=== PATIENT | female | born 1945 | race Caucasian/White ===

== ENCOUNTER → 2016-10-31 | Outpatient (REF) | payer MEDICARE ==
[~2016-10-31] MED LIST: ASPI325T PO; ATEN50TA2 PO; CINN500C9 PO; COUM2.5T11 PO; CRANPOW2 PO; CYCL10TA PO; FISH5CAP PO; FLAX1000 PO; FLAXOIL3 PO; GARL1CAP PO; LISI10TA4 PO; MAGN250T9 PO; MILKSUS PO; MIRA3350 PO; NIAC500T5 PO; PERC5TAB6 PO; PRIL20TA2 PO; PROBCAP4 PO; SENO8.6T10 PO; SIMV40TA2 PO; TYLE325T5 PO; TYLE650T25 PO; VITA200016 PO; cranberry OR; tylenol arthritis OR
== END ==
LOC: M SFHCLERA 18:32
PROVIDERS: ATTEND Nurse Practitioner Family
DX: R30.0 Dysuria (principal)
CPT/HCPCS: 81002; 87088; 87186; G0463

== ENCOUNTER → 2017-06-18 | Outpatient (REF) | payer OTHER ==
[~2017-06-18] MED LIST changes: -COUM2.5T11 PO; +COUM2.5T17 PO; +GARL10004 PO; -GARL1CAP PO; +PERC5TAB12 PO; -PERC5TAB6 PO
== END ==
LOC: M LAB REF 16:21
PROVIDERS: ATTEND Family Medicine
DX: E78.4 Other hyperlipidemia (principal); E06.1 Subacute thyroiditis

== ENCOUNTER → 2018-08-25 | Outpatient (REF) | payer MEDICARE | LOC: M SFHCLERA 14:04 | DX: J02.9 Acute pharyngitis, unspecified (principal) ==

== ENCOUNTER → 2018-09-14 | Outpatient (CLI) | payer MEDICARE ==
[~2018-09-14] MED LIST changes: -FLAX1000 PO; +FLAX10008 PO; +MILK120011 PO; -MILKSUS PO
--- NOTE | 2018-09-14 16:50 | REP ---
Bilateral rib series: Five views including PA chest. History: Left lower rib pain. Cough. Comparison chest x-ray: May 05, 2016. Findings: PA chest radiograph shows no evidence of pneumothorax or hydrothorax. Mediastinum is not widened. The aorta is slightly tortuous. Heart is not felt to be enlarged and is unchanged. No infiltrate is seen. Multiple views of the U right and left ribs show no evidence of bony destructive lesion or rib fracture. 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 Impression: No rib fracture seen. No acute disease. Electronically Signed by Sebastian Coleman MD 09/14/2018 04:42 P
== END ==
LOC: M LRY 15:56
PROVIDERS: ATTEND Nurse Practitioner Family
DX: M25.711 Osteophyte, right shoulder (principal); M25.712 Osteophyte, left shoulder; R07.81 Pleurodynia
CPT/HCPCS: 71111; G0463

== ENCOUNTER → 2018-12-08 | Outpatient (REF) | payer MEDICARE ==
[~2018-12-08] MED LIST changes: +ASPI-1 PO; -ASPI325T PO
== END ==
LOC: M SFHCLERA 13:10
PROVIDERS: ATTEND Physician Assistant
DX: R39.9 Unspecified symptoms and signs involving the genitourinary system (principal)
CPT/HCPCS: 81002; 87088; 87186; G0463

== ENCOUNTER 2019-04-03 09:09 | Day surgery (SDC) | payer MEDICARE ==
[~2019-04-03] VITALS: Ht 157.5 cm; Wt 91.2 kg
[~2019-04-03 09:09] MED LIST changes: +ASPI81TA85 PO; +BIOT1TAB PO; +CALC500T38 PO; +CINN500C15 PO; +GARL500C PO; +GLUC500C37 PO; +NS 1,000 ML IV ONE; +OMEGCAP4 PO; +RA M10TA PO; +SUPETAB44 PO; +TYLE650T35 PO; +VIAC1CHW PO
[2019-04-03] MEDS ORDERED: PROPOFOL 200 MG/20 ML VIAL As Ordered ONE ×2 (10:32→11:00)
--- NOTE | 2019-04-03 10:49 | ROOR ---
Patient Name: Pat Fajardo Procedure Date: 04/03/2019 10:31 AM Date of : 1945 Age: 73 Room: [facility] Gender: Female Note Status: Finalized Procedure: Colonoscopy Indications: Screening for colorectal malignant neoplasm Providers: Lavell Askew Jr, MD Referring MD: Eli Fontaine DO Requesting Provider: Medicines: Propofol per Anesthesia Complications: No immediate complications. Procedure: Pre-Anesthesia Assessment: - Prior to the procedure, a History and Physical was performed, and patient medications and allergies were reviewed. The patient is competent. The risks and benefits of the procedure and the sedation options and risks were discussed with the patient. All questions were answered and informed consent was obtained. Patient identification and proposed procedure were verified by the physician and the nurse in the pre-procedure area and in the procedure room. Mental Status Examination: alert and oriented. Airway Examination: normal oropharyngeal airway and neck mobility. Respiratory Examination: clear to auscultation. CV Examination: normal. ASA Grade Assessment: II - A patient with mild systemic disease. After reviewing the risks and benefits, the patient was deemed in satisfactory condition to undergo the procedure. The anesthesia plan was to use moderate sedation / analgesia (conscious sedation). Immediately prior to administration of medications, the patient was re-assessed for adequacy to receive sedatives. The heart rate, respiratory rate, oxygen saturations, blood pressure, adequacy of pulmonary ventilation, and response to care were monitored throughout the procedure. The physical status of the patient was re-assessed after the procedure. The Colonoscope was introduced through the anus and advanced to the cecum, identified by appendiceal orifice and ileocecal valve. The colonoscopy was performed without difficulty. The patient tolerated the procedure well. The quality of the bowel preparation was adequate. Findings: The rectum, recto-sigmoid colon, descending colon, transverse colon, ascending colon, cecum, appendiceal orifice and ileocecal valve appeared normal. A few small and large-mouthed diverticula were found in the sigmoid colon. Impression: - The rectum, recto-sigmoid colon, descending colon, transverse colon, ascending colon, cecum, appendiceal orifice and ileocecal valve are normal. - Diverticulosis in the sigmoid colon. - No specimens collected. Recommendation: - Discharge patient to home (ambulatory). - Repeat colonoscopy in 10 years for screening purposes. Lavell Askew MD Lavell Askew Jr, MD 04/03/2019 10:49:32 AM Electronically signed by Lavell Askew Jr, MD Number of Addenda: 0 Note Initiated On: 04/03/2019 10:31 AM Estimated Blood Loss: Estimated blood loss: none.
[2019-04-03 11:15] VITALS: BP 137/71
== END 2019-04-03 11:18 | disposition home or self-care (01) ==
LOC: M OPP 09:09
PROVIDERS: ATTEND Surgery
DX: Z12.11 Encounter for screening for malignant neoplasm of colon (principal); K57.30 Diverticulosis of large intestine without perforation or abscess without bleeding; G47.33 Obstructive sleep apnea (adult) (pediatric); G54.9 Nerve root and plexus disorder, unspecified; G89.29 Other chronic pain; Z79.82 Long term (current) use of aspirin; Z79.899 Other long term (current) drug therapy; Z88.5 Allergy status to narcotic agent; Z91.010 Allergy to peanuts

== ENCOUNTER → 2019-05-17 | Outpatient (REF) | payer MEDICARE ==
[~2019-05-17] MED LIST changes: -GARL500C PO; +GARL500C10 PO; -NS 1,000 ML IV ONE; -SIMV40TA2 PO; +SIMV40TA20 PO
== END ==
LOC: M SFHCLERA 14:25
PROVIDERS: ATTEND Physician Assistant
DX: R30.0 Dysuria (principal)
CPT/HCPCS: 81002; 87086; G0463

== ENCOUNTER → 2023-12-15 | Outpatient (CLI) | payer MEDICARE ==
[~2023-12-15] MED LIST changes: +ACET650T61 PO; -ASPI81TA85 PO; +ASPI81TA86 PO; +CYCL-707 PO; -CYCL10TA PO; -GARL500C10 PO; +GARL500C2 PO; +LISI10TA22 PO; -LISI10TA4 PO; -TYLE650T35 PO
== END ==
LOC: M LAB 16:01
PROVIDERS: ATTEND Physician Assistant
DX: N30.01 Acute cystitis with hematuria (principal)

== ENCOUNTER → 2024-10-24 | Outpatient (REF) | payer MEDICARE ==
[~2024-10-24] MED LIST changes: -GARL500C2 PO; +GARL500C6 PO
== END ==
LOC: M LAB REF 19:24
PROVIDERS: ATTEND Nurse Practitioner Family
DX: R30.0 Dysuria (principal)

== ENCOUNTER → 2024-10-27 | Outpatient (REF) | payer MEDICARE | LOC: M LAB REF 16:08 | PROVIDERS: ATTEND Nurse Practitioner Family | DX: R30.0 Dysuria (principal) ==

== ENCOUNTER → 2024-11-13 | Outpatient (REF) | payer MEDICARE | LOC: M LAB REF 17:11 | PROVIDERS: ATTEND Student in an Organized Health Care Education/Training Program | DX: R30.0 Dysuria (principal) ==

== ENCOUNTER → 2024-11-14 | Outpatient (REF) | payer MEDICARE | LOC: M LAB REF 17:22 | PROVIDERS: ATTEND Nurse Practitioner Family | DX: R30.0 Dysuria (principal) ==

== ENCOUNTER → 2025-06-27 | Outpatient (REF) | payer MEDICARE | LOC: M LAB REF 17:22 | PROVIDERS: ATTEND Physician Assistant | DX: R10.32 Left lower quadrant pain (principal) ==

== ENCOUNTER → 2025-06-28 | Outpatient (CLI) | payer MEDICARE ==
[2025-06-28 13:08] LABS: BASO # 0.1 10^3/uL (0.0-0.2); BASO % 1.0 % (0.0-1.0); EOS # 0.3 10^3/uL (0.0-0.5); EOS % 3.2 % (0.0-3.0); LYMPH # 1.5 10^3/uL (1.5-5.0); LYMPH % 19.0 % (24.0-44.0); MONO # 0.6 10^3/uL (0.0-0.8); MONO % 7.0 % (2.0-8.0); NEUTROPHILS # 5.5 10^3/uL (1.5-8.5); NEUTROPHILS % 69.4 % (36.0-66.0); PLATELET COUNT, AUTOMATED 355 10^3/uL (150-450)
[2025-06-28 13:38] LABS: ALT/SGPT 12.0 U/L (7.0-40); AST/SGOT 13.0 U/L (<34); C REACTIVE PROTEIN QUANTITATIV 4.38 MG/DL (<1.0); CALCIUM LEVEL 9.4 MG/DL (8.3-10.6); CARBON DIOXIDE LEVEL 25.0 MMOL/L (20-31); CHLORIDE LEVEL 107.0 MMOL/L (98-107); CREATININE FOR GFR 0.79 MG/DL (0.55-1.30); GLOMERULAR FILTRATION RATE 76.5 (>39); POTASSIUM SERUM 3.9 MMOL/L (3.5-5.1); SODIUM LEVEL 144.0 MMOL/L (136-145)
== END ==
LOC: M RAD 12:21
PROVIDERS: ATTEND Physician Assistant
DX: R10.32 Left lower quadrant pain (principal)